=== PATIENT | female | born 1995 | race Caucasian/White ===

== ENCOUNTER 2017-07-29 11:09 | Emergency (ER) | payer SELFPAY ==
[~2017-07-29] VITALS: Wt 46.0 kg
[~2017-07-29 11:09] MED LIST: CALC600T11 PO; FERR240T9 PO; FOL8 PO; PRENAT PO
[2017-07-29] MEDS ORDERED: SOD CHLORIDE 0.9% 1,000 ML IV STA (11:22)
[2017-07-29] MEDS ORDERED: FAMOTIDINE 20 MG INJ IV STA (11:25)
[2017-07-29] MEDS ORDERED: METOCLOPRAMIDE 10 MG INJ IV ONE (11:30)
[2017-07-29] MEDS ORDERED: DIPHENHYDRAMINE 50 MG INJ IV ONE (11:30)
--- NOTE | 2017-07-29 11:53 | ERD ---
ER Documentation Chief Complaint Date/Time DATE: 07/29/17 TIME: 11:51 Chief Complaint 10 WEEKS WITH VOMITING HPI 22-year-old female who is 10 weeks , A0 presents with epigastric abdominal pain with nausea vomiting over the last 3 days. She states that she also has a history of gastritis but has not taken anything for this. She reports up to 5 episodes of nonbloody nonbilious emesis each day. She denies any fevers or chills, diarrhea. She denies pelvic pain or vaginal bleeding. ROS All systems reviewed and are negative except as per history of present illness. Medications Home Meds Active Scripts Nitrofurantoin Monohyd Macrocr* (Macrobid*) 100 Mg Capsr, 100 MG PO BID for 7 Days, CAP Prov:JOE COSME PA-C 07/29/17 Ondansetron (Ondansetron Odt) 4 Mg Tab.rapdis, 4 MG PO Q6H Y for NAUSEA AND/OR VOMITING, #10 TAB Prov:JOE COSME PA-C 07/29/17 Ranitidine Hcl* (Zantac*) 150 Mg Tablet, 150 MG PO BID Y for EPIGASTRIC PAIN, # 30 TAB Prov:JOE COSME PA-C 07/29/17 Reported Medications Folic Acid* (Folic Acid*) 0.8 Mg Tablet, 0.8 MG PO DAILY, TAB 04/28/16 Calcium Carbonate* (Calcium Carbonate*) 600 MG Ca Tab, 600 MG PO DAILY, TAB 04/28/16 Ferrous Gluconate (Iron) 1 Tab Tablet, 1 TAB PO DAILY, TAB 04/28/16 Multivit/Min/Fol Ac/Iron/Pren* ( S*) 1 Tab Tab, 1 TAB PO DAILY, TAB 04/28/16 Allergies Allergies: Coded Allergies: No Known Allergy (Unverified , 05/03/16) PMhx/Soc History of Surgery: No Anesthesia Reaction: No Hx Neurological Disorder: No Hx Respiratory Disorders: No Hx Cardiac Disorders: No Hx Psychiatric Problems: No Hx Miscellaneous Medical Probl: No Hx Alcohol Use: No Hx Substance Use: No Hx Tobacco Use: No Smoking Status: Never smoker Physical Exam Vitals Vital Signs Date Time Temp Pulse Resp B/P Pulse Ox O2 Delivery O2 Flow Rate FiO2 07/29/17 11:11 98.8 120 18 117/75 99 Physical Exam General: Well-developed, well-nourished. The patient appears in no acute distress. HEENT: Head is normocephalic, atraumatic. No scleral icterus. Neck: Supple. Nontender. Lungs: Clear to auscultation. Normal air movement. Heart: Regular rate and rhythm. S1 and S2 are normal. No murmurs, gallops, or rubs. Abdomen: Soft, tender in the epigastric region, nondistended. Bowel sounds are normoactive. [place] Gonzalez sign, no McBurney's tenderness. Extremities: No clubbing or cyanosis. Normal pulses. Moving extremities x 4. No weakness. Neurologic: Alert and oriented 3. No focal deficits. Skin: Normal turgor. No rash or lesions. Result Diagram: 07/29/17 1122 07/29/17 1122 Results 24 hrs Laboratory Tests Test 07/29/17 11:22 White Blood Count 7.210^3/ul Red Blood Count 5.1910^6/ul Hemoglobin 12.9g/dl Hematocrit 38.9% Mean Corpuscular Volume 75.0fl Mean Corpuscular Hemoglobin 24.9pg Mean Corpuscular Hemoglobin Concent 33.2g/dl Red Cell Distribution Width 16.8% Platelet Count 17912^3/UL Mean Platelet Volume 10.9fl Neutrophils % 73.7% Lymphocytes % 14.0% Monocytes % 10.8% Eosinophils % 0.4% Basophils % 0.4% Nucleated Red Blood Cells % 0.0/100WBC Neutrophils # (Manual) 5.310^3/ul Lymphocytes # 1.010^3/ul Monocytes # 0.810^3/ul Eosinophils # 0.010^3/ul Basophils # 0.010^3/ul Nucleated Red Blood Cells # 0.010^3/ul Urine Color ROGELIO Urine Clarity CLOUDY Urine pH 6.0 Urine Specific [place] 1.020 Urine Ketones 1+mg/dL Urine Nitrite NEGATIVEmg/dL Urine Bilirubin NEGATIVEmg/dL Urine Urobilinogen 2+mg/dL Urine Leukocyte Esterase 3+Samy/ul Urine Microscopic RBC 12/HPF Urine Microscopic WBC > 182/HPF Urine Squamous Epithelial Cells MANY/HPF Urine Bacteria MODERATE/HPF Urine Mucus MANY/HPF Urine Hemoglobin 1+mg/dL Urine Glucose NEGATIVEmg/dL Urine Total Protein 2+mg/dl Sodium Level 139mmol/L Potassium Level 3.3mmol/L Chloride Level 100mmol/L Carbon Dioxide Level 25mmol/L Anion Gap 17 Blood Urea Nitrogen 9mg/dl Creatinine 0.54mg/dl Glucose Level 116mg/dl Calcium Level 10.4mg/dl Total Bilirubin 0.6mg/dl Direct Bilirubin 0.00mg/dl Indirect Bilirubin 0.6mg/dl Aspartate Amino Transf (AST/SGOT) 99IU/L Alanine Aminotransferase (ALT/SGPT) 146IU/L Alkaline Phosphatase 123IU/L Total Protein 9.2g/dl Albumin 4.8g/dl Globulin 4.40g/dl Albumin/Globulin Ratio 1.09 Lipase 156U/L Beta HCG, Quantitative 685191.0mIU/ml Current Medications Medications (Trade) Dose Ordered Sig/Silas Route PRN Reason Start Time Stop Time Status Last Admin Dose Admin Sodium Chloride (NS) 1,000 ml @ 1,000 mls/hr Q1H STAT IV 07/29/17 11:22 07/29/17 12:21 DC 07/29/17 11:38 Diphenhydramine HCl (Benadryl) 25 mg ONCE ONCE IV 07/29/17 11:30 07/29/17 11:31 DC 07/29/17 11:43 Metoclopramide HCl (Reglan) 10 mg ONCE ONCE IV 07/29/17 11:30 07/29/17 11:31 DC 07/29/17 11:43 Famotidine 20 mg 20 mg ONCE STAT IV 07/29/17 11:25 07/29/17 11:26 DC 07/29/17 11:43 Ceftriaxone Sodium (Rocephin) 50 ml @ 100 mls/hr ONCE ONCE IVPB 07/29/17 14:00 07/29/17 14:29 DC 07/29/17 14:31 DIAGNOSTIC IMAGING REPORT Patient: JERILYN BERRIOS : 1995 Age: 22 Sex: F [id number] DOS: 07/29/17 1125 Ordering MD: JOE COSME PA-C Location: E Room/Bed: PROCEDURE: Obstetrical ultrasound CLINICAL INDICATION: Hyperemesis, abdominal pain TECHNIQUE: Multiple sonographic images of the pelvis were obtained utilizing a transabdominal and endovaginal technique. The images were reviewed on a PACS workstation. COMPARISON: None. FINDINGS: There are twin live intrauterine gestations. Baby A has heart rate of 168 beats per minute and crown-rump length of 1.72 cm which is consistent with a gestational age of 8 weeks, 1 day . The estimated date of delivery by ultrasound is 03/09/2018 . Baby B has heart rate of 174 beats per minute and crown-rump length of 2.14 cm which is consistent with a gestational age of 8 weeks, 5 days . The estimated date of delivery by ultrasound is 03/05/2018 . The estimated gestational age by LMP is 10 weeks, 3 days . The estimated date of delivery by LMP is 02/21/2018 . The right ovary measures 3.0 x 1.4 x 1.7 cm. The left ovary measures 3.0 x 2.3 x 2.2 cm. There is normal vascular flow in both ovaries. No significant ovarian lesions are seen. No significant pelvic free fluid is identified. IMPRESSION: Twin live intrauterine consistent with a gestational age of approximately 8 weeks, 3 days . The estimated date of delivery is 03/07/2018 . Dating by ultrasound is within 2 weeks of dating by LMP. No subchorionic hemorrhage. RPTAT: EE Physician Darlyn Date Time Electronically viewed and signed by Physician Darlyn on 07/29/2017 13:38 RA/ CC: JOE COSME PA-C DIAGNOSTIC IMAGING REPORT Patient: JERILYN BERRIOS : 1995 Age: 22 Sex: F MR #: [id number] DOS: 07/29/17 1357 Ordering MD: JOE COSME PA-C Location: [facility] Room/Bed: PROCEDURE: US Abdomen. CLINICAL INDICATION: Hyper emesis TECHNIQUE: Multiple real-time images were acquired of the patient's right upper abdomen utilizing a high resolution transducer. COMPARISON: None available FINDINGS: No gallstone, gallbladder wall thickening, or pericholecystic fluid is seen. Mild biliary sludge is present. No intra or extrahepatic biliary dilatation is seen. The common bile duct measures 2 mm in diameter. The liver appears normal in size and echotexture. The visualized portions of the pancreas are unremarkable. The right kidney appears unremarkable, measuring 11.7 cm in length. No free fluid is seen. IMPRESSION: Biliary sludge without the biliary ductal dilatation. Otherwise, Unremarkable right upper quadrant abdominal ultrasound. RPTAT: HSM .Letha Manzanares MD, Date Time Electronically viewed and signed by .Letha Manzanares MD, on 07/29/2017 14:34 .M/ CC: JOE COSME PA-C Procedures/MDM ED course: Patient had an IV line established, blood and urine were obtained. She was given a fluid bolus of normal saline 1 L, Reglan 10 mg, Benadryl 25 mg, Pepcid 20 mg IV. The patient's abdominal pain was reexamined. Patient was sitting comfortably with improved pain. Patient was not in any distress. Patient was found to have a urinary tract infection and was given Rocephin 1 g IV. Medical decision makin-year-old female comes in with gastritis, hyperemesis gravidarum and is 10 weeks , With urinary tract infection associated epigastric abdominal pain. Patient has twin gestation, both live seen on ultrasound today.Patient has epigastric abdominal pain with nausea vomiting. She was given Pepcid which alleviated her pain. Rocephin was given for urinary tract infection. She states at this time her nausea is alleviated after the Reglan. She was offered additional nausea medicine and at this time she states that she feels fine. Patient's potassium is 3.3, she was advised to eat bananas over the next 1-2 days. Otherwise she appears well, no clinical signs of dehydration. No signs of acute or surgical abdominal process. Mild elevation of transaminitis is most likely to 2 vomiting. Gallbladder ultrasound was also done to follow-up, there is sludge however no evidence of cholecystitis, choledocholithiasis. Departure Diagnosis: Primary Impression: First trimester Additional Impressions: Hyperemesis gravidarum Abdominal pain Condition: Good JOE COSME PA-C Jul 29, 2017 11:53
[2017-07-29 12:02] LABS: WHITE BLOOD COUNT 7.2 10^3/ul (4.8-10.8)
[2017-07-29 12:03] LABS: BASOPHILS % 0.4 % (0.0-2.0); EOSINOPHILS % 0.4 % (0.0-7.0); HEMATOCRIT 38.9 % (37.0-47.0); HEMOGLOBIN 12.9 g/dl (12.0-16.0); MEAN CORPUSCULAR HEMOGLOBIN 24.9 pg (29.0-33.0); MEAN CORPUSCULAR HGB CONC 33.2 g/dl (32.0-37.0); MEAN PLATELET VOLUME 10.9 fl (7.4-10.4); MONOCYTE # 0.8 10^3/ul (0.3-0.9); MONOCYTES % 10.8 % (0.0-11.0); NEUTROPHILS % 73.7 % (39.0-77.0); PLATELET COUNT 233 10^3/UL (140-415); RED BLOOD COUNT 5.19 10^6/ul (4.20-5.40); RED CELL DISTRIBUTION WIDTH 16.8 % (11.5-14.5)
[2017-07-29 12:15] LABS: ADD UMIC YES; ALBUMIN 4.8 g/dl (3.3-4.9); ALBUMIN/GLOBULIN RATIO 1.09; BILIRUBIN,INDIRECT 0.6 mg/dl (0-1.1); BILIRUBIN,TOTAL 0.6 mg/dl (0.2-1.3); CALCIUM 10.4 mg/dl (8.4-10.2); CREATININE 0.54 mg/dl (0.44-1.00); POTASSIUM 3.3 mmol/L (3.5-5.1); TOTAL PROTEIN 9.2 g/dl (6.1-8.1); UR ASCORBIC ACID NEGATIVE (NEGATIVE); UR BACTERIA MODERATE /HPF (NONE SEEN); UR BILIRUBIN (Dip) NEGATIVE (NEGATIVE); UR BLOOD (Dip) 1+ mg/dL (NEGATIVE); UR CLARITY CLOUDY (CLEAR); UR COLOR AMBER (YELLOW); UR GLUCOSE (Dip) NEGATIVE (NEGATIVE); UR KETONES (Dip) 1+ mg/dL (NEGATIVE); UR LEUKOCYTE ESTERASE (Dip) 3+ Leu/ul (NEGATIVE); UR MUCUS MANY /HPF (NONE SEEN); UR NITRITE (Dip) NEGATIVE (NEGATIVE); UR RBC 12 /HPF (0-5); UR SQUAMOUS EPITHELIAL CELL MANY /HPF (FEW); UR TOTAL PROTEIN (Dip) 2+ mg/dl (NEGATIVE); UR UROBILINOGEN (Dip) 2+ mg/dL (NEGATIVE)
--- NOTE | 2017-07-29 13:38 | RADRPT ---
PROCEDURE: Obstetrical ultrasound CLINICAL INDICATION: Hyperemesis, abdominal pain TECHNIQUE: Multiple sonographic images of the pelvis were obtained utilizing a transabdominal and endovaginal technique. The images were reviewed on a PACS workstation. COMPARISON: None. FINDINGS: There are twin live intrauterine gestations. Baby A has heart rate of 168 beats per minute and crown-rump length of 1.72 cm which is consis tent with a gestational age of 8 weeks, 1 day . The estimated date of delivery by ultrasound is 03/09/2018 . Baby B has heart rate of 174 beats per minute and crown-rump length of 2.14 cm which is consis tent with a gestational age of 8 weeks, 5 days . The estimated date of delivery by ultrasound is 03/05/2018 . The estimated gestational age by LMP is 10 weeks, 3 days . The estimated date of delivery by LMP is 02/21/2018 . The right ovary measures 3.0 x 1.4 x 1.7 cm. The left ovary measures 3.0 x 2.3 x 2.2 cm. There is no rmal vascular flow in both ovaries. No significant ovarian lesions are seen. No significant pelvic free fluid is identified. IMPRESSION: Twin live intrauterine consistent with a gestational age of approximately 8 weeks, 3 days . The estimated date of delivery is 03/07/2018 . Dating by ultrasound is within 2 weeks of dating by LMP. No subchorionic hemorrhage. RPTAT: EE Physician Darlyn Date Time Electronically viewed and signed by Physician Darlyn on 07/29/2017 13:38 /
[2017-07-29] MEDS ORDERED: CEFTRIAXONE 1 GM/50 ML (PMX) 50 ML IVPB ONE (14:00)
--- NOTE | 2017-07-29 14:34 | RADRPT ---
PROCEDURE: US Abdomen. CLINICAL INDICATION: Hyper emesis TECHNIQUE: Multiple real-time images were acquired of the patient's right upper abdomen utilizing a high resolution transducer. COMPARISON: None available FINDINGS: No gallstone, gallbladder wall thickening, or pericholecystic fluid is seen. Mild biliary sludge is present. No intra or extrahepatic biliary dilatation is seen. The common bile duct measures 2 mm in diameter. The liver appears normal in size and echotexture. The visualized portions of the pancre as are unremarkable. The right kidney appears unremarkable, measuring 11.7 cm in length. No free f luid is seen. IMPRESSION: Biliary sludge without the biliary ductal dilatation. Otherwise, Unremarkable right upper quadrant abdominal ultrasound. RPTAT: HSM .Letha Manzanares MD, Date Time Electronically viewed and signed by .Letha Manzanares MD, MD on 07/29/2017 14:34 .M/
[2017-07-29] MEDS ORDERED: ONDA4TAB14 PO (14:45)
[2017-07-29] MEDS ORDERED: RANI150T9 PO (14:45)
[2017-07-29] MEDS ORDERED: NITR-58 PO (14:45)
== END 2017-07-29 15:04 | disposition home or self-care (01) ==
LOC: FTE 11:09
DX: O21.0 Mild hyperemesis gravidarum (principal); O26.891 Other specified pregnancy related conditions, first trimester; R10.13 Epigastric pain; R10.2 Pelvic and perineal pain; Z3A.08 8 weeks gestation of pregnancy
CPT/HCPCS: 36415; 76705; 76801; 80053; 81001; 83690; 84702; 85025; 86900; 86901; 96374; 96375; 99285; J0696; J1200; J2765; J7030

== ENCOUNTER 2018-02-19 19:10 | Inpatient (IN) | END 2018-02-21 15:10 | disposition home or self-care (01) | DRG 775 ==